=== PATIENT | male | born 1965 | race Caucasian/White ===

== ENCOUNTER 2016-12-16 14:05 | Inpatient (IN) | payer OTHER ==
[~2016-12-16] VITALS: Ht 177.8 cm; Wt 109.3 kg
--- NOTE | 2016-12-16 14:18 | NUR ---
BIB [facility] C/P MID STERNAL CHEST PAIN, NON RADIATING X 3O MIN FULFILLMENT ASSOCIATE . PLACED ON MONITOR AWAITING MD ORDER
--- NOTE | 2016-12-16 14:45 | NUR ---
LAC #18 IV ACCESS. BLOOD SAMPLE COLLECTED SENT TO LAB
[2016-12-16 14:53] LABS: BASOPHILS # (AUTO) 0.1 /CMM (0.0-0.2); BASOPHILS % (AUTO) 1.2 % (0.0-2.0); EOSINOPHILS # (AUTO) 0.2 /CMM (0.0-0.7); EOSINOPHILS % (AUTO) 3.9 % (0.0-6.0); HEMATOCRIT 40 % (39-51); HEMOGLOBIN 13.7 g/dL (13.5-17.5); LYMPHOCYTES # (AUTO) 1.1 /CMM (0.8-4.8); LYMPHOCYTES % (AUTO) 22.9 % (20.0-44.0); MEAN CORPUSCULAR HEMOGLOBIN 31 PG (26.0-33.0); MEAN CORPUSCULAR HGB CONC 35 g/dl (31.0-36.0); MEAN CORPUSCULAR VOLUME 90 fL (80-96); MONOCYTES # (AUTO) 0.4 /CMM (0.1-1.30); MONOCYTES % (AUTO) 8.6 % (2.0-12.0); NEUTROPHILS # (AUTO) 3.2 /CMM (1.8-8.9); NEUTROPHILS % (AUTO) 63.4 % (43.0-81.0); PLATELET COUNT (AUTO) 275 /CMM (150-450); RDW COEFFICIENT OF VARIATION 13.3 (11.5-15.0); RED BLOOD CELL COUNT(AUTO) 4.41 MIL/uL (4.5-6.0)
[2016-12-16 14:57] LABS: CALCIUM, SERUM 8.1 mg/dL (8.5-10.1); POTASSIUM 3.4 mmol/L (3.5-5.1)
[2016-12-16] MEDS ORDERED: ASPIRIN 81 MG TAB.CHEW PO ONE (15:00)
[2016-12-16 15:04] LABS: INR 0.95 (0.87-1.13); PROTHROMBIN TIME 9.9 SECS (9.5-12.7)
[2016-12-16] MEDS ORDERED: ASPIRIN 81 MG TAB.CHEW ONE (15:05)
[2016-12-16 15:06] LABS: TROPONIN I 0.017 ng/mL (0.00-0.056)
--- NOTE | 2016-12-16 15:23 | NUR ---
PT GOING TO TELE 306-1 AMADOR
[2016-12-16] MEDS ORDERED: ESCI10TA PO (15:28)
[2016-12-16] MEDS ORDERED: ATOR80TA PO (15:28)
[2016-12-16] MEDS ORDERED: CLOP75TA2 PO (15:28)
[2016-12-16] MEDS ORDERED: AMLO5TAB2 PO (15:28)
[2016-12-16] MEDS ORDERED: ISOS60TA4 PO (15:28)
[2016-12-16] MEDS ORDERED: METO25TA6 PO (15:28)
[2016-12-16] MEDS ORDERED: NITR0.4T SL (15:28)
[2016-12-16] MEDS ORDERED: MIRT30TA7 PO (15:28)
[2016-12-16] MEDS ORDERED: ASPI-991 PO (15:28)
--- NOTE | 2016-12-16 16:05 | NUR ---
GAVE REPORT TO ESTEFANY SONG / ANDIE SONG ADMITTING DX CP DR PALENCIA. PRECIOUS VIA ACLS PROTOCL
[2016-12-16 16:40] VITALS: BP 116/72
--- NOTE | 2016-12-16 16:40 | NUR ---
power press operator Initial Notes: Received patient from ER. Patient stable. No shortness of breath. No signs of distress noted. IV on left AC patent and intact. Bed at lowest position. Call light light within reach. Dr. Sarmiento notifed of admission. Assessment done. Will continue to monitor.
[2016-12-16 17:00] VITALS: BP 116/72
[2016-12-16] MEDS ORDERED: ONDANSETRON HCL/PF 4 MG/2 ML VIAL IVP PRN (17:00)
[2016-12-16] MEDS ORDERED: MORPHINE SULFATE INJ 2 MG/ML DISP.SYRIN IV PRN (17:00)
[2016-12-16] MEDS ORDERED: MAG HYDROX/AL HYDROX/SIMETH 30 ML UDC PO PRN (17:00)
[2016-12-16] MEDS ORDERED: ACETAMINOPHEN 325 MG TABLET PO PRN (17:00)
[2016-12-16] MEDS ORDERED: MAGNESIUM HYDROXIDE 30 ML UDC PO PRN (17:00)
[2016-12-16] MEDS ORDERED: HYDROCODONE/APAP 5/325MG 1 EACH TABLET PO PRN (17:00)
[2016-12-16] MEDS ORDERED: ZOLPIDEM TARTRATE 5 MG TABLET PO PRN (17:00)
[2016-12-16] MEDS ORDERED: Z GUARD REMEDY 2 OZ OINT TP PRN (17:00)
[2016-12-16] MEDS ORDERED: ENOXAPARIN SODIUM 40 MG/0.4 ML DISP.SYRIN SQ SCH (17:30)
[2016-12-16] MEDS: METOPROLOL TARTRATE 25 MG TABLET PO SCH (17:56)
[2016-12-16] MEDS ORDERED: MIRTAZAPINE 15 MG TABLET PO SCH (18:00)
--- NOTE | 2016-12-16 19:05 | NUR ---
RN NOTE RECEIVED REPORT. PT AAOX4, NO C/O CP/SOB. TELE SHOWS SR. SKIN WARM TO TOUCH, NON-DIAPHORETIC. IV INTACT AND PATENT. CALL LIGHT IN REACH, WILL MONITOR.
--- NOTE | 2016-12-16 19:43 | NUR ---
demand planning manager Initial Notes: Received patient from ER. Patient stable. No shortness of breath. No signs of distress noted. IV on left AC patent and intact. Bed at lowest position. Call light light within reach. Dr. Sarmiento notifed of admission. Assessment done. Will continue to monitor. Addendum: 12/16/16 at 1945 by ESTEFANY TRENT RN RN Notes: Patient stable. No shortness of breath. No signs of distress noted. IV on left AC patent and intact. Bed at lowest position. Call light light within reach. Orders carried out. Assessment done. Endorsed to next shift to take picture of patient's bruise on lower abdomen.
[2016-12-16 20:00] VITALS: BP 122/76
[2016-12-16] MEDS: NITROGLYCERIN 30 GM TUBE TP SCH (22:02)
[2016-12-17] VITALS: BP 109/66
[2016-12-17 04:00] VITALS: BP 144/78
[2016-12-17] MEDS: NITROGLYCERIN 30 GM TUBE TP SCH ×2 (05:49→13:24)
[2016-12-17 06:39] LABS: BASOPHILS % (AUTO) 0.7 % (0.0-2.0); EOSINOPHILS # (AUTO) 0.5 /CMM (0.0-0.7); HEMATOCRIT 39 % (39-51); HEMOGLOBIN 13.5 g/dL (13.5-17.5); LYMPHOCYTES # (AUTO) 1.7 /CMM (0.8-4.8); LYMPHOCYTES % (AUTO) 37.1 % (20.0-44.0); MEAN CORPUSCULAR HEMOGLOBIN 32 PG (26.0-33.0); MEAN CORPUSCULAR HGB CONC 35 g/dl (31.0-36.0); MEAN CORPUSCULAR VOLUME 91 fL (80-96); MONOCYTES # (AUTO) 0.5 /CMM (0.1-1.30); NEUTROPHILS # (AUTO) 1.8 /CMM (1.8-8.9); NEUTROPHILS % (AUTO) 40.2 % (43.0-81.0); PLATELET COUNT (AUTO) 230 /CMM (150-450); RDW COEFFICIENT OF VARIATION 14.4 (11.5-15.0); RED BLOOD CELL COUNT(AUTO) 4.28 MIL/uL (4.5-6.0); WHITE BLOOD COUNT (AUTO) 4.5 K/uL (4.3-11.0)
--- NOTE | 2016-12-17 06:52 | NUR ---
RN NOTE NO SIGNIFICANT CHANGES OVERNIGHT. PT DENIES CP/SOB AT THIS TIME, SKIN WARM TO TOUCH, NON-DIAPHORETIC. TELE SHOWS SB 56. IV INTACT AND PATENT. KEPT CLEAN AND COMFORTABLE, WILL F/U WITH DAY SHIFT FOR KARL TO SEE SUCTION OPERATOR.
[2016-12-17 07:11] VITALS: BP 142/100
[2016-12-17] MEDS ORDERED: PANTOPRAZOLE 40 MG TABLET.DR PO SCH (07:30)
[2016-12-17 07:51] LABS: CALCIUM, SERUM 8.3 mg/dL (8.5-10.1); CREATININE 0.9 mg/dL (0.6-1.3); MAGNESIUM 1.8 mg/dL (1.8-2.4); POTASSIUM 3.7 mmol/L (3.5-5.1)
--- NOTE | 2016-12-17 08:00 | NUR ---
SEC ACCOUNTANT NOTES PATIENT IN BED RESTING NO SOB OR ACUTE DISTRESS NOTED. PERIPHERAL IV INTACT PATENT. BED IN LOW LOCKED POSITION. BED IN LOW LOCKED POSITION. DENIES ANY CHEST PAIN. WILL CONTINUE TO MONITOR.
[2016-12-17] MEDS: METOPROLOL TARTRATE 25 MG TABLET PO SCH (08:30)
[2016-12-17] MEDS ORDERED: CLOPIDOGREL BISULFATE 75 MG TABLET PO SCH (09:00)
[2016-12-17] MEDS ORDERED: ATORVASTATIN 40 MG TABLET PO SCH (09:00)
[2016-12-17] MEDS ORDERED: Medication Not On Formulary EA (Isosorbide Mononitrate 60 MG) PO SCH (09:00)
[2016-12-17] MEDS ORDERED: ASPIRIN EC 81 MG TABLET.DR PO SCH (09:00)
[2016-12-17] MEDS ORDERED: AMLODIPINE BESYLATE 5 MG TABLET PO SCH (09:00)
[2016-12-17] MEDS ORDERED: ESCITALOPRAM OXALATE (10 MG) 10 MG TABLET PO SCH (09:00)
--- NOTE | 2016-12-17 10:00 | NUR ---
WASHING TUB OPERATOR NOTES PATIENT SEEN AND EVALUATED BY DR. PALENCIA. ORDERS NOTED AND CARRIED OUT.
[2016-12-17 13:24] VITALS: BP 132/86
--- NOTE | 2016-12-17 14:27 | NUR ---
SW received a social service consult from NOHEMI Arango for possible homelessness. SW attempted to meet with pt, however was informed by NOHEMI Arango that pt. changed his mind about wanting to speak to SW and left without SW being able to assess pt.
--- NOTE | 2016-12-17 14:30 | NUR ---
PATIENT REGISTRATION REP NOTES PATIENT DISCHARGED TO [facility] STATES HE STAYS THERE CURRENTLY. PATIENT STATES HE IS ENLISTED TO QUALIFY FOR HOUSING. HE FOLLOWS UP WITH [facility] FOR CARDIOLOGY AND PSYCHOLOGY. PATIENT IN STABLE CONDITION. MD AWARE OF ALL ABNORMAL LABS. DISCHARGE INSTRUCTIONS PROVIDED, PATIENT VERBALIZES UNDERSTANDING. DISCHARGE PROTOCOL FOLLOWED. PERIPHERAL IV REMOVED. ID BAND REMOVED. ESCORTED TO CAR.
== END 2016-12-17 14:20 | disposition home or self-care (01) | DRG 756 ==
LOC: ER 14:08 → TELE 16:27
PROVIDERS: ADMIT Internal Medicine; ATTEND Internal Medicine
DX: F41.9 Anxiety disorder, unspecified (principal); I10 Essential (primary) hypertension; Z98.61 Coronary angioplasty status; I25.2 Old myocardial infarction; I25.10 Atherosclerotic heart disease of native coronary artery without angina pectoris; F31.9 Bipolar disorder, unspecified; E78.00 Pure hypercholesterolemia, unspecified; K59.00 Constipation, unspecified; M19.90 Unspecified osteoarthritis, unspecified site; Z79.02 Long term (current) use of antithrombotics/antiplatelets; Z59.0 Homelessness; Z79.82 Long term (current) use of aspirin; Z79.899 Other long term (current) drug therapy; Z86.73 Personal history of transient ischemic attack (TIA), and cerebral infarction without residual deficits; Z87.442 Personal history of urinary calculi; Z88.5 Allergy status to narcotic agent; R09.89 Other specified symptoms and signs involving the circulatory and respiratory systems
CPT/HCPCS: 36415; 71010-TC; 80048-TC; 83735-TC; 84100-TC; 84484-TC; 85025-TC; 85730-TC; 87081-TC; 93307-TC; A4606; J1650; Z7610